=== PATIENT | female | born 1955 | race Caucasian/White ===

== ENCOUNTER 2023-02-18 22:37 | Observation (INO) | payer OTHER ==
[2023-02-19 01:02] VITALS: BMI 42.9
[2023-02-19] MEDS ORDERED: Ondansetron PF 4 MG/2 ML Vial IVP PRN (01:12)
[2023-02-19] MEDS ORDERED: Ondansetron ODT 4 MG TAB PO PRN (01:12)
[2023-02-19] MEDS ORDERED: Nitroglycerin 0.4 MG TAB (25 Tab Bottle) SL PRN (01:12)
[2023-02-19] MEDS ORDERED: Calcium Carbonate 500 MG ChewTAB PO PRN (01:12)
[2023-02-19] MEDS ORDERED: Sodium Chloride 0.9% 1,000 ML IV SCH (01:15)
[2023-02-19] MEDS ORDERED: Amlodipine 10 MG TAB PO PRN (01:16)
[2023-02-19] MEDS ORDERED: Amlodipine 10 MG TAB PO SCH (02:15)
[2023-02-19] MEDS: Acetaminophen 325 MG TAB PO PRN ×2 (04:00→14:12)
[2023-02-19 05:26] LABS: Hemoglobin A1c 5.9 % (4.0-6.0)
[2023-02-19 05:42] LABS: Cardiac Risk 3.5 (Less than 4.5)
[2023-02-19] MEDS: Amlodipine 10 MG TAB PO SCH (08:25)
[2023-02-19] MEDS: Lisinopril 10 MG TAB PO SCH (08:25)
[2023-02-19] MEDS: Aspirin Chewable 81 MG TAB PO SCH (08:25)
[2023-02-19] MEDS ORDERED: Regadenoson 0.4 MG/5 ML SYRINGE ONE (11:54)
[2023-02-19] MEDS ORDERED: Simvastatin 10 MG TAB PO SCH (21:00)
[2023-02-20 05:51] LABS: #Basophils 0.1 thou/uL (0.0-0.2); #Eosinphils 0.3 thou/uL (0.0-0.7); #Monocytes 0.6 thou/uL (0.11-0.59); #Neutrophils 4.7 thou/uL (1.40-6.50); %Basophils 0.8 % (0.0-1.0); %Eosinophils 4.6 % (0.0-10.0); %Lymphocytes 22.4 % (21.0-51.0); %Monocytes 8.4 % (0.0-10.0); %Neutrophils 63.5 % (42.0-75.0); Hematocrit 36.2 % (36.0-47.0); Hemoglobin 11.7 g/dL (12.0-16.0); Mean Corpuscular HGB CONC 32.3 g/dL (32.0-36.0); Mean Corpuscular Hemoglobin 29.4 pg (27.0-31.0); Mean Platelet Volume 9.2 fL (7.4-10.4); Platelet Count 201 10x3/uL (130-400); Red Blood Cell (RBC) Count 3.98 mill/uL (4.20-5.40); White Blood Cell (WBC) Count 7.4 10x3/uL (4.8-10.8)
[2023-02-20 06:13] LABS: Anion Gap 14 mmol/L (10-20); BUN (Urea Nitrogen) 10 mg/dL (9.8-20.1); Calc. Creatinine Clearance 82 mL/min (70-130); Calcium 9.2 mg/dL (7.8-10.44); Carbon Dioxide 22 mmol/L (23-31); Chloride 109 mmol/L (98-107); Estimated GFR 55; Glucose 114 mg/dL (80-115); Potassium 3.8 mmol/L (3.5-5.1); Sodium 141 mmol/L (136-145)
[2023-02-20 06:18] LABS: Troponin I Less than 0.010 ng/mL (< 0.028)
[2023-02-20] MEDS: Aspirin Chewable 81 MG TAB PO SCH (08:20)
[2023-02-20] MEDS: Amlodipine 10 MG TAB PO SCH (08:21)
[2023-02-20] MEDS: Lisinopril 10 MG TAB PO SCH (08:21)
[2023-02-20 11:19] VITALS: BP 149/66; TEMP 97.7
== END 2023-02-20 14:45 | disposition home or self-care (01) ==
LOC: 2NO 02-19 00:15
PROVIDERS: ADMIT Student in an Organized Health Care Education/Training Program; ATTEND Family Medicine
DX: R07.9 Chest pain, unspecified (principal); R07.2 Precordial pain; I10 Essential (primary) hypertension; E78.5 Hyperlipidemia, unspecified; I31.39 Other pericardial effusion (noninflammatory); E66.01 Morbid (severe) obesity due to excess calories; Z90.89 Acquired absence of other organs; Z79.899 Other long term (current) drug therapy; Z68.41 Body mass index [BMI] 40.0-44.9, adult
CPT/HCPCS: 78452; 80048; 80061; 83036; 84484; 85025; 93005; 93017; 93306; 94760; A9500; G0378 ×2; J2785; 36415; 93010; J7050